=== PATIENT | male | born 1930 | race Caucasian/White ===

== ENCOUNTER 2016-09-03 19:34 | Emergency (ER) | payer OTHER ==
[~2016-09-03] VITALS: Ht 182.9 cm; Wt 97.8 kg
[~2016-09-03 19:34] MED LIST: ALLOPURINOL100 MG; ANTIVERT25 MG PO; ASPIR-LOW81 MG PO; ASPIR-MOX 325325 MG PO; ATENOLOL100 MG PO; Aspirin PO; BUTALBITAL-APA1 EACH; EXCEDRIN MIGRA1 EAC3 PO; FIORICET,ESG1 TABLET PO; Fioricet,Esgic,Repan PO; LISINOPRIL2.5 MG; LYRICA25 MG; LYRICA50 MG PO; LYRICA75 MG PO; MUSCLE RUB CREA85 GM TP; PRILOSEC20 MG PO; SIMVASTATIN10 M1 PO; SIMVASTATIN5 MG; TOPROL XL50 MG PO; TYLENOL EXTRA500 MG PO; ZESTRIL,PRINIVI20 MG PO; ZESTRIL40 MG PO; ZOCOR20 MG PO; ZYLOPRIM300 MG PO; Zyloprim PO
[2016-09-03 21:24] LABS: CHLORIDE 109 mEq/L (99-109); HEMATOCRIT 39.5 % (38.0-50.0); MCH 30.3 PG (29.0-34.0); MCHC 31.6 G/DL (30.0-36.0); MCV 95.6 FL (86-99); MEAN PLAT.VOLUME 9.7 uM^3 (9.0-12.4); PLATELET COUNT 241 K/uL (156-360); POTASSIUM 4.3 mEq/L (3.7-5.4); RBC DIS.WIDTH-CV 13.6 % (11.8-14.6); RBC DIS.WIDTH-SD 48.4 % (39-53); RED BLOOD COUNT 4.13 M/uL (4.00-5.50); SODIUM 142 mEq/L (136-147); WHITE BLOOD COUNT 5.9 K/uL (4.1-10.2)
[2016-09-03 21:27] LABS: GLUCOSE 102 mg/dL (70-99)
[2016-09-03 21:28] LABS: ANION GAP 11 MEQ/L (2-14)
[2016-09-03 21:29] LABS: TOTAL BILIRUBIN 0.3 mg/dL (0.0-1.0)
[2016-09-03 21:30] LABS: ALKALINE PHOSPHATASE 97 IU/L (3-129); GFR ESTIMATE (CALCULATED) 51 mL/min/
[2016-09-03 21:31] LABS: UREA NITROGEN (BUN) 42 mg/dL (9-23)
[2016-09-03 21:33] LABS: CREATINE KINASE 147 IU/L (1-294); TOTAL CK 147 IU/L (1-294)
[2016-09-03] MEDS ORDERED: BACLOFEN10 MG PO (23:19)
[2016-09-04 00:13] VITALS: BP 117/91
== END 2016-09-04 00:13 | disposition home or self-care (01) ==
LOC: EME 19:34
PROVIDERS: Emergency Medicine
DX: M62.838 Other muscle spasm (principal); E86.0 Dehydration; R60.0 Localized edema; Z87.891 Personal history of nicotine dependence; Z88.5 Allergy status to narcotic agent; Z88.0 Allergy status to penicillin; I10 Essential (primary) hypertension; Z87.442 Personal history of urinary calculi; K21.9 Gastro-esophageal reflux disease without esophagitis; Z86.73 Personal history of transient ischemic attack (TIA), and cerebral infarction without residual deficits
CPT/HCPCS: 80053; 82550; 82553; 85027; 93970; 99281; 99284

== ENCOUNTER 2016-11-04 15:21 | Inpatient (IN) | payer OTHER ==
[~2016-11-04] VITALS: Ht 188 cm; Wt 93.6 kg
[~2016-11-04 15:21] MED LIST changes: +BACLOFEN10 MG PO
[2016-11-04 16:16] LABS: HEMATOCRIT 39.4 % (38.0-50.0); MCH 30.1 PG (29.0-34.0); MCHC 32.5 G/DL (30.0-36.0); MCV 92.7 FL (86-99); MEAN PLAT.VOLUME 9.3 uM^3 (9.0-12.4); PLATELET COUNT 377 K/uL (156-360); RBC DIS.WIDTH-CV 13.5 % (11.8-14.6); RBC DIS.WIDTH-SD 46.3 % (39-53); RED BLOOD COUNT 4.25 M/uL (4.00-5.50); WHITE BLOOD COUNT 8.9 K/uL (4.1-10.2)
[2016-11-04 16:24] LABS: INTER. NORMALIZED RATIO 1.1; PROTHROMBIN TIME 11.1 (9.2-11.2)
[2016-11-04 16:29] LABS: CHLORIDE 105 mEq/L (99-109); POTASSIUM 4.2 mEq/L (3.7-5.4); SODIUM 138 mEq/L (136-147)
[2016-11-04 16:30] LABS: GLUCOSE 110 mg/dL (70-99)
[2016-11-04 16:32] LABS: ANION GAP 10 MEQ/L (2-14)
[2016-11-04 16:34] LABS: GFR ESTIMATE (CALCULATED) > 59 mL/min/
[2016-11-04 16:35] LABS: UREA NITROGEN (BUN) 20 mg/dL (9-23)
[2016-11-04 16:36] LABS: TROP-I INTERPRETATION NEGATIVE; TROPONIN-I 0.08 ng/mL (0.0-0.30)
[2016-11-04] MEDS ORDERED: FLEXERIL5 MG PO (18:17)
[2016-11-04] MEDS ORDERED: FUROSEMIDE40 MG PO (18:18)
[2016-11-04] MEDS ORDERED: BUTALB-APAP-CA1 EACH PO (18:18)
[2016-11-04 20:38] VITALS: BP 138/72
[2016-11-05] VITALS (8 sets, daily range): BP systolic 111–162; BP diastolic 68–98
[2016-11-05 00:02] LABS: METH RESISTANT S AUREUS PCR NEGATIVE (NEGATIVE)
[2016-11-05 00:04] LABS: PROBE CHECK PASS; SPECIMEN PROCESSING CONTROL PASS
[2016-11-05 05:51] LABS: BASOPHIL COUNT 0.1 K/uL (0-0.1); EOSINOPHIL (%) 5.9 % (0-5); EOSINOPHIL COUNT 0.5 K/uL (0-0.3); HEMATOCRIT 37.2 % (38.0-50.0); IMMATURE GRANULOCYTE (%) 0.3 % (0.0-0.7); INSTRUMENT ABS NEUTROPHIL CT 4.4 K/uL; LYMPHOCYTE COUNT 1.9 K/uL (1.0-2.8); MCH 30.3 PG (29.0-34.0); MCHC 32.5 G/DL (30.0-36.0); MEAN PLAT.VOLUME 9.6 uM^3 (9.0-12.4); MONOCYTE (%) 11.4 % (3-12); MONOCYTE COUNT 0.9 K/uL (0-0.8); NEUTROPHIL (%) 57.3 % (45-76); NEUTROPHIL COUNT 4.4 K/uL (1.8-6.4); PLATELET COUNT 349 K/uL (156-360); RBC DIS.WIDTH-CV 13.6 % (11.8-14.6); RBC DIS.WIDTH-SD 46.6 % (39-53); WHITE BLOOD COUNT 7.8 K/uL (4.1-10.2)
[2016-11-05] MEDS ORDERED: AZITHROMYCIN250 MG1 PO (08:45)
[2016-11-06 04:27] VITALS: BP 129/65
[2016-11-06 06:53] LABS: BASOPHIL COUNT 0.1 K/uL (0-0.1); EOSINOPHIL (%) 7.4 % (0-5); EOSINOPHIL COUNT 0.6 K/uL (0-0.3); HEMATOCRIT 39.6 % (38.0-50.0); IMMATURE GRANULOCYTE (%) 0.6 % (0.0-0.7); IMMATURE GRANULOCYTE COUNT 0.1 K/uL; INSTRUMENT ABS NEUTROPHIL CT 4.5 K/uL; LYMPHOCYTE COUNT 1.6 K/uL (1.0-2.8); MCH 29.9 PG (29.0-34.0); MCHC 32.1 G/DL (30.0-36.0); MCV 93.2 FL (86-99); MEAN PLAT.VOLUME 9.7 uM^3 (9.0-12.4); MONOCYTE (%) 11.3 % (3-12); MONOCYTE COUNT 0.9 K/uL (0-0.8); NEUTROPHIL (%) 58.6 % (45-76); NEUTROPHIL COUNT 4.5 K/uL (1.8-6.4); PLATELET COUNT 379 K/uL (156-360); RBC DIS.WIDTH-CV 13.6 % (11.8-14.6); RBC DIS.WIDTH-SD 46.9 % (39-53); RED BLOOD COUNT 4.25 M/uL (4.00-5.50); WHITE BLOOD COUNT 7.7 K/uL (4.1-10.2)
[2016-11-06 07:25] VITALS: BP 138/89
[2016-11-06 07:52] LABS: ANION GAP 9 MEQ/L (2-14); CHLORIDE 102 MEQ/L (99-109); GFR ESTIMATE (CALCULATED) 56 mL/min/; GLUCOSE 90 mg/dL (70-99); POTASSIUM 4.6 MEQ/L (3.7-5.4); SAMPLE HEMOLYSIS CHECK 0; SAMPLE ICTERIC CHECK 0; SAMPLE LIPEMIA CHECK 0; SODIUM 137 MEQ/L (136-147)
[2016-11-06 07:53] LABS: UREA NITROGEN (BUN) 31 mg/dL (9-23)
[2016-11-06 08:54] LABS: INTERNAL CONTROL VALID? YES
[2016-11-06 09:39] LABS: ALKALINE PHOSPHATASE 105 IU/L (3-129); TOTAL BILIRUBIN 0.4 MG/DL (0.0-1.0)
[2016-11-06 10:26] LABS: Estimated Average Glucose 128 mg/dL (70-123); HEMOGLOBIN A1c (GLYCOHEMOGLOB) 6.1 % HGB (Below 5.7)
[2016-11-06 12:10] VITALS: BP 106/77
[2016-11-06 15:10] VITALS: BP 103/74
[2016-11-06 23:05] VITALS: BP 138/87
[2016-11-07 07:15] VITALS: BP 121/76
[2016-11-07 11:20] VITALS: BP 91/51; BP 95/54
[2016-11-07 11:41] LABS: POINT-OF-CARE METER ID UU14162508
[2016-11-07 15:45] VITALS: BP 135/72
[2016-11-07 16:14] LABS: POINT-OF-CARE METER ID UU14162508
[2016-11-07 20:42] LABS: INFLUENZA A VIRAL ANTIGEN NEGATIVE; INFLUENZA B VIRAL ANTIGEN NEGATIVE
[2016-11-07 21:53] LABS: POINT-OF-CARE METER ID UU14162508
[2016-11-07 23:09] VITALS: BP 120/66
[2016-11-08 06:47] LABS: POINT-OF-CARE METER ID UU14162508
[2016-11-08 07:10] VITALS: BP 123/75
[2016-11-08 12:24] LABS: POINT-OF-CARE METER ID UU14162508
[2016-11-08 16:25] VITALS: BP 130/72
[2016-11-08 16:40] LABS: POINT-OF-CARE METER ID UU14162508
[2016-11-08 21:58] LABS: POINT-OF-CARE METER ID UU14162508
[2016-11-09 00:07] VITALS: BP 113/66
[2016-11-09 06:27] LABS: POINT-OF-CARE METER ID UU14162508
[2016-11-09 06:59] VITALS: BP 104/61
[2016-11-09 11:25] VITALS: BP 90/52
[2016-11-09] MEDS ORDERED: LEVAQUIN500 MG PO (12:46)
[2016-11-09] MEDS ORDERED: METFORMIN HCL500 MG PO (12:49)
== END 2016-11-09 16:01 | DRG 189 ==
LOC: EME 15:21 → 5WEST 19:29 → EDOF 19:29 → 5WEST 20:33 → 2EAST 11-05 14:30 → 5WEST 11-05 14:30 → 2EAST 11-05 17:12
PROVIDERS: Emergency Medicine; Family Medicine; Hospitalist; Internal Medicine Pulmonary Disease; Physician Assistant Medical
DX: J96.01 Acute respiratory failure with hypoxia (principal); J18.9 Pneumonia, unspecified organism; F33.9 Major depressive disorder, recurrent, unspecified; Z66 Do not resuscitate; Z51.5 Encounter for palliative care; I69.320 Aphasia following cerebral infarction; I10 Essential (primary) hypertension; E11.65 Type 2 diabetes mellitus with hyperglycemia; E78.5 Hyperlipidemia, unspecified; K21.9 Gastro-esophageal reflux disease without esophagitis; G43.909 Migraine, unspecified, not intractable, without status migrainosus; G93.89 Other specified disorders of brain; M54.9 Dorsalgia, unspecified; M10.9 Gout, unspecified; J84.10 Pulmonary fibrosis, unspecified; J98.4 Other disorders of lung; E66.3 Overweight; Z60.2 Problems related to living alone; Z68.26 Body mass index [BMI] 26.0-26.9, adult; Z86.14 Personal history of Methicillin resistant Staphylococcus aureus infection; Z88.0 Allergy status to penicillin; Z88.5 Allergy status to narcotic agent; Z79.84 Long term (current) use of oral hypoglycemic drugs; Z83.3 Family history of diabetes mellitus; Z82.49 Family history of ischemic heart disease and other diseases of the circulatory system; Z82.3 Family history of stroke
CPT/HCPCS: 70450; 71020; 71250; 80048; 80053; 82948; 83036; 83880; 84484; 85025; 85027; 85610; 87070; 87205; 87449; 87502; 87641; 93005; 93880; 94010; 94799; 97530 GO; 97530 GP; 99202; 99281; 99285; G0378; G8978 GP CM; G8979 CJ; G8987 GO CM; G8988 GO CK; J1200; J1644; J1885; J1940; J1956; J2765; J2930